=== PATIENT | male | born 1960 | race Caucasian/White ===

== ENCOUNTER 2018-06-25 08:59 | Emergency (ER) | payer OTHER ==
[2018-06-25] MEDS: HYDROCODONE/APAP (5/325) TAB PO (09:39)
[2018-06-25] MEDS: DIPHTH/TET/ACEL PERTUSS (ADULT) 0.5 ML VIAL IM* (09:39)
[2018-06-25] MEDS: SODIUM CHLORIDE 0.9% 1L IRRIG IRR (09:42)
[2018-06-25] MEDS: CEFAZOLIN 1 GM INJ IM (10:33)
== END 2018-06-25 10:47 | disposition home or self-care (01) ==
LOC: FTE 08:59
DX: S62.661B Nondisplaced fracture of distal phalanx of left index finger, initial encounter for open fracture (principal); F17.210 Nicotine dependence, cigarettes, uncomplicated; W23.0XXA Caught, crushed, jammed, or pinched between moving objects, initial encounter; Y92.9 Unspecified place or not applicable; Z23 Encounter for immunization
CPT/HCPCS: 73140; 90471; 90715; 96372; 99284-25

== ENCOUNTER 2018-06-28 14:31 | Emergency (ER) | payer SELFPAY, OTHER | END 2018-06-28 16:46 | disposition left against medical advice (07) | LOC: E/R 14:31 | DX: Z53.21 Procedure and treatment not carried out due to patient leaving prior to being seen by health care provider (principal) ==

== ENCOUNTER 2018-06-28 19:07 | Emergency (ER) | payer SELFPAY | END 2018-06-28 19:44 | disposition left against medical advice (07) | LOC: E/R 19:07 | DX: Z53.21 Procedure and treatment not carried out due to patient leaving prior to being seen by health care provider (principal) ==

== ENCOUNTER 2018-07-02 09:12 | Emergency (ER) | payer OTHER | END 2018-07-02 09:50 | disposition home or self-care (01) | LOC: FTE 09:12 | DX: S62.661A Nondisplaced fracture of distal phalanx of left index finger, initial encounter for closed fracture (principal); F17.210 Nicotine dependence, cigarettes, uncomplicated; X58.XXXA Exposure to other specified factors, initial encounter; Y92.9 Unspecified place or not applicable | CPT/HCPCS: 99281; Z7502 ==